=== PATIENT | female | born 1980 | race Caucasian/White ===

== ENCOUNTER 2016-09-28 09:55 | Emergency (ER) | payer OTHER ==
[~2016-09-28] VITALS: Ht 160 cm; Wt 61.6 kg
[~2016-09-28 09:55] MED LIST: BACTRIM,SEPT1 TABLET PO; BACTROBAN CREAM15 GM TP; CLEOCIN300 MG PO; NAPROSYN500 MG PO; PRENATAL VITAM1 EAC3 PO; ULTRAM50 MG PO
[2016-09-28 10:03] VITALS: BP 126/76
[2016-09-28] MEDS ORDERED: METHADOSE40 MG PO (11:09)
== END 2016-09-28 11:52 | disposition home or self-care (01) ==
LOC: EME 09:55
DX: S93.402A Sprain of unspecified ligament of left ankle, initial encounter (principal); W10.8XXA Fall (on) (from) other stairs and steps, initial encounter
CPT/HCPCS: 73610; 99281; 99284

== ENCOUNTER 2016-12-05 13:11 | Emergency (ER) | payer OTHER ==
[~2016-12-05] VITALS: Ht 160 cm; Wt 58.5 kg
[~2016-12-05 13:11] MED LIST changes: +METHADOSE40 MG PO
[2016-12-05] MEDS ORDERED: DOXYCYCLINE HY100 MG PO (15:07)
[2016-12-05 15:26] VITALS: BP 138/82
== END 2016-12-05 15:37 | disposition home or self-care (01) ==
LOC: EME 13:11
PROC: 3E0234Z Introduction of Serum, Toxoid and Vaccine into Muscle, Percutaneous Approach (ICD-10-PCS; principal; 2016-12-05)
DX: S61.256A Open bite of right little finger without damage to nail, initial encounter (principal); W54.0XXA Bitten by dog, initial encounter; Z23 Encounter for immunization
CPT/HCPCS: 99281; 99283